=== PATIENT | female | born 1970 | race Caucasian/White ===

== ENCOUNTER 2018-04-12 11:30 | Emergency (ER) | payer OTHER ==
[~2018-04-12] VITALS: Ht 152.4 cm; Wt 69.8 kg
[2018-04-12 11:32] VITALS: TEMP 36.9; Ht 152.4 cm; Wt 69.8 kg
[2018-04-12] MEDS ORDERED: SODIUM CHLORIDE 0.9% 1000ML 1,000 ML IV ONE (12:00)
[2018-04-12] MEDS ORDERED: NALOXONE HCL 0.4 MG/1 ML VIAL/CARP IV PRN (12:00)
[2018-04-12 12:33] LABS: BASO % 0.8 %; BASO ABS # 0.05 K/uL (0-0.2); EOS % 0.8 %; EOS ABS # 0.05 K/uL (0-0.5); HEMATOCRIT 40.9 % (37-47); IG# 0.01 K/uL (0.00-0.02); LYMPH % 34.3 %; LYMPH ABS # 2.24 K/uL (1.2-3.4); MEAN CELL VOLUME 94.7 fL (80-100); MEAN CORPUSCULAR HEMOGLOBIN 32.4 pg (25-34); MEAN CORPUSCULAR HGB CONC 34.2 g/dl (32-36); MEAN PLATELET VOLUME 9.9 fL (7.4-10.4); MONO % 9.9 %; MONO ABS # 0.65 K/uL (0.11-0.59); NEUT ABS # 3.54 K/uL (1.4-6.5); PLATELET COUNT 230 K/uL (130-400); RED CELL DISTRIBUTION WIDTH CV 13.1 % (11.5-14.5); RED CELL DISTRIBUTION WIDTH SD 45.5 fL (36.4-46.3); WHITE BLOOD COUNT 6.54 K/uL (4.8-10.8)
--- NOTE | 2018-04-12 12:35 | EMERGENCY ROOM VISIT NOTE ---
History First contact with patient: 11:35 Chief Complaint: CHEMICAL EXPOSURE Stated Complaint: EXPOSURE Nursing Triage Summary: Patient arrived via ALS from [facility] with exposure from substance that came through the mail. 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 The group home gave me narcan before the ambulance arrived." Denies pain, chest pain, SOB. PT just states "my body feels like it's floating, I can't really feel my body." Patient reports this occured between 9am-10am, symptoms started around 1015. Patient is able to state her full name, stated the year is 1969, knows why she is here. History of Present Illness The patient is a 47 year old female who presents to the Emergency Room with complaints of altered mental status after a possible exposure at work. The patient works at [employer] in the [employer]. This morning around 10:00, she was sorting mail. She began to feel lightheaded and numb. She tried to get up and walk and felt dizzy. The patient collapsed to the floor. She was given 2 doses of Narcan prior to departure from the group home. Currently, the patient is saying that she feels numb all over. She feels like she is floating. She also feels very tired. The history is somewhat limited from the patient as she is altered. Review of Systems 10 system review performed and negative unless noted in HPI or below Past Medical/Surgical History Depression Social History Smoking Status: Never Smoker Occupation Status: employed Current/Historical Medications Scheduled Control Pills ( Control Pills), 1 TAB PO DAILY Bupropion (Wellbutrin-Xl), 300 MG PO QAM Omeprazole (Prilosec), 20 MG PO QAM Pregabalin (Lyrica), 1 CAP PO AMHS Propranolol (Inderal), 60 MG PO QAM Physical Exam Vital Signs Date Time Temp Pulse Resp B/P (MAP) Pulse Ox O2 Delivery O2 Flow Rate FiO2 04/12/18 17:00 74 16 144/81 99 Room Air 04/12/18 15:37 93 04/12/18 15:30 159/95 99 Room Air 04/12/18 15:15 76 16 150/89 99 Room Air 8/28/18 15:00 77 16 158/98 99 Room Air 04/12/18 14:45 86 16 144/113 98 Room Air 04/12/18 14:30 74 16 148/90 96 Room Air 04/12/18 14:15 74 16 138/98 04/12/18 14:00 71 16 146/96 99 Room Air 04/12/18 13:35 72 147/105 97 Room Air 04/12/18 13:15 89 18 167/68 95 Room Air 04/12/18 13:00 72 18 185/105 98 Room Air 04/12/18 12:22 68 16 171/90 99 Room Air 04/12/18 11:36 74 04/12/18 11:32 36.9 65 16 165/91 99 Room Air Physical Exam VITALS: Vitals are noted on the nurse's note and reviewed by myself. Vital signs stable. GENERAL: 47-year-old female, very drowsy and slightly confused, i SKIN: The skin was without rashes, erythema, edema, or bruising. HEAD: Normocephalic atraumatic. EYES: Pupils equal round and reactive to light and accommodation. Conjunctivae without injection, sclerae without icterus. Extraocular movements intact. MOUTH: Mucous membranes slightly dry NECK: Supple without nuchal rigidity. No lymphadenopathy. Cervical spine is nontender. No JVD. HEART: Regular rate and rhythm without murmurs gallops or rubs. LUNGS: Clear to auscultation bilaterally without wheezes, rales or rhonchi. No accessory muscle use. ABDOMEN: Positive bowel sounds x 4.Soft, nontender, without organomegaly. No guarding or rebound tenderness. MUSCULOSKELETAL: No muscle atrophy, erythema, or edema noted. Strength 5/5 throughout. NEURO: Patient was alert and oriented to person only. Following some commands. Medical Decision & Procedures ER Provider Diagnostic Interpretation: CT head w/o contrast Impression: No acute intracranial abnormality. The above report was generated using voice recognition software. It may contain grammatical, syntax or spelling errors. Electronically signed by: Steve Rosenbaum M.D. 04/12/2018 1:56 PM Dictated Date/Time: 04/12/2018 1:52 PM The status of this report is Signed. Draft = Not yet reviewed or approved by Radiologist. Signed = Reviewed and approved by Radiologist. Laboratory Results 04/12/18 12:23 Red Blood Count 4.32, Mean Corpuscular Volume 94.7, Mean Corpuscular Hemoglobin 32.4, Mean Corpuscular Hemoglobin Concent 34.2, Mean Platelet Volume 9.9, Neutrophils (%) (Auto) 54.0, Lymphocytes (%) (Auto) 34.3, Monocytes (%) (Auto) 9.9, Eosinophils (%) (Auto) 0.8, Basophils (%) (Auto) 0.8, Neutrophils # (Auto) 3.54, Lymphocytes # (Auto) 2.24, Monocytes # (Auto) 0.65, Eosinophils # (Auto) 0.05, Basophils # (Auto) 0.05 04/12/18 12:23 Test 04/12/18 12:10 04/12/18 12:23 Urine Color DK YELLOW Urine Appearance CLEAR (CLEAR) Urine pH 6.5 (4.5-7.5) Urine Specific Bronson 1.014 (1.000-1.030) Urine Protein NEG (NEG) Urine Glucose (UA) NEG (NEG) Urine Ketones NEG (NEG) Urine Occult Blood NEG (NEG) Urine Nitrite NEG (NEG) Urine Bilirubin NEG (NEG) Urine Urobilinogen NEG (NEG) Urine Leukocyte Esterase NEG (NEG) Urine Opiates Screen NEG (NEG) Urine Methadone, Qualitative NEG (NEG) Urine Barbiturates NEG (NEG) Urine Phencyclidine (PCP) Level NEG (NEG) Ur Amphetamine/Methamphetamine NEG (NEG) MDMA (Ecstasy) Screen POS (NEG) Urine Benzodiazepines Screen NEG (NEG) Urine Cocaine Metabolite NEG (NEG) Urine Marijuana (THC) NEG (NEG) White Blood Count 6.54 K/uL (4.8-10.8) Red Blood Count 4.32 M/uL (4.2-5.4) Hemoglobin 14.0 g/dL (12.0-16.0) Hematocrit 40.9 % (37-47) Mean Corpuscular Volume 94.7 fL (80-100) Mean Corpuscular Hemoglobin 32.4 pg (25-34) Mean Corpuscular Hemoglobin Concent 34.2 g/dl (32-36) Platelet Count 230 K/uL (130-400) Mean Platelet Volume 9.9 fL (7.4-10.4) Neutrophils (%) (Auto) 54.0 % Lymphocytes (%) (Auto) 34.3 % Monocytes (%) (Auto) 9.9 % Eosinophils (%) (Auto) 0.8 % Basophils (%) (Auto) 0.8 % Neutrophils # (Auto) 3.54 K/uL (1.4-6.5) Lymphocytes # (Auto) 2.24 K/uL (1.2-3.4) Monocytes # (Auto) 0.65 K/uL (0.11-0.59) Eosinophils # (Auto) 0.05 K/uL (0-0.5) Basophils # (Auto) 0.05 K/uL (0-0.2) RDW Standard Deviation 45.5 fL (36.4-46.3) RDW Coefficient of Variation 13.1 % (11.5-14.5) Immature Granulocyte % (Auto) 0.2 % Immature Granulocyte # (Auto) 0.01 K/uL (0.00-0.02) Anion Gap 6.0 mmol/L (3-11) Est Creatinine Clear Calc Drug Dose 73.0 ml/min Estimated GFR () 97.3 Estimated GFR (Non- 84.0 BUN/Creatinine Ratio 16.9 (10-20) Calcium Level 7.4 mg/dl (8.5-10.1) Total Bilirubin 0.3 mg/dl (0.2-1) Aspartate Amino Transf (AST/SGOT) 15 U/L (15-37) Alanine Aminotransferase (ALT/SGPT) 20 U/L (12-78) Alkaline Phosphatase 67 U/L (45-117) Total Protein 6.3 gm/dl (6.4-8.2) Albumin 3.2 gm/dl (3.4-5.0) Globulin 3.1 gm/dl (2.5-4.0) Albumin/Globulin Ratio 1.0 (0.9-2) Medications Administered Medications (Trade) Dose Ordered Sig/Yaneth Route Start Time Stop Time Status Last Admin Dose Admin Sodium Chloride 1,000 ml @ 999 mls/hr Q1H1M ONCE IV 04/12/18 12:00 04/12/18 13:00 DC 04/12/18 12:00 999 MLS/HR Naloxone HCl (Narcan Inj) 2 mg NOW STAT IV 04/12/18 12:53 04/12/18 12:55 DC 04/12/18 12:53 2 MG ECG Per My Interpretation Indication: other Rate (beats per minute): 71 Rhythm: normal sinus ED Course The patient underwent decontamination The patient was put on a monitor An EKG was performed A full H and P were performed She was given 1 L normal saline IV bolus Labs were collected and reviewed The patient was also seen and examined by my supervising physician who is in agreement with my plan A CT of the head was performed and reviewed Upon reevaluation, the patient was feeling much better. She was comfortable being discharged home. I reviewed discharge instructions the patient. They voiced understanding and had no further questions. Medical Decision Differential diagnosis: Chemical exposure including fentanyl, heroin, and anthrax, intracranial abnormality, electrolyte imbalance, among others This patient is a 47-year-old female that presents to the emergency department with altered mental status after possibly being exposed to a chemical at work. On exam, she was confused. She was not following commands. Her vital signs were stable. Her workup is fairly unremarkable. The etiology of her symptoms is unclear. I believe she is stable to be discharged home with close follow- up. The patient was comfortable with this plan. She will return to the ED with any concerning symptoms. This chart was completed in part utilizing [employer] Voice Recognition software. Attempts were made to minimize the grammatical errors, random word insertions, pronoun errors and incomplete sentences. Any formal questions or concerns about the content, text or information contained within the body of this dictation should be directly addressed to the provider for clarification. Medication Reconcilliation Current Medication List: was personally reviewed by me Blood Pressure Screening Patient's blood pressure: Elevated blood pressure Blood pressure disposition: Referred to PCP Impression Primary Impression: Chemical exposure Departure Information Dispostion Home / Self-Care Referrals No Doctor, Assigned (PCP) Patient Instructions [facility] Additional Instructions You have been evaluated in the emergency department for a possible chemical exposure. The source of this exposure at this point is unclear. Please drink plenty of fluids over the next 48 hours. Please follow-up with your primary care physician. Of note, your blood pressure was high today. This should be rechecked. Do not hesitate to return to the emergency department with any new, worsening or concerning symptoms It was a pleasure participating in your care today
[2018-04-12] MEDS ORDERED: PREG1CAP36 PO (12:37)
[2018-04-12] MEDS ORDERED: PROP1TAB PO (12:37)
[2018-04-12] MEDS ORDERED: PRLSR20 PO (12:37)
[2018-04-12] MEDS ORDERED: BUPRTAB51 PO (12:37)
[2018-04-12] MEDS ORDERED: BCPILLS PO (12:37)
[2018-04-12] MEDS ORDERED: NALOXONE HCL 0.4 MG/1 ML VIAL/CARP IV STA (12:53)
[2018-04-12 12:58] LABS: ALBUMIN 3.2 gm/dl (3.4-5.0); CALCIUM 7.4 mg/dl (8.5-10.1); CREATININE 0.83 mg/dl (0.60-1.20); POTASSIUM 4.6 mmol/L (3.5-5.1); TOTAL PROTEIN 6.3 gm/dl (6.4-8.2)
--- NOTE | 2018-04-12 13:58 | DIAGNOSTIC IMAGING REPORT ---
HEAD WITHOUT CONTRAST (CT) CT DOSE: 537.48 mGy.cm HISTORY: Mental status change AMS TECHNIQUE: Multiaxial CT images of the head were performed without the use of intravenous contrast. A dose lowering technique was utilized adhering to the principles of ALARA. Comparison: None. Findings: The paranasal sinuses and mastoid air cells are clear. The calvarium and skull base are intact. The ventricles and sulci are within normal limits. There is no mass, hematoma, midline shift, or acute infarct. Impression: No acute intracranial abnormality. The above report was generated using voice recognition software. It may contain grammatical, syntax or spelling errors. Electronically signed by: Steve Rosenbaum M.D. 04/12/2018 1:56 PM Dictated Date/Time: 04/12/2018 1:52 PM
[2018-04-12 17:00] VITALS: BP 144/81; PULSE 74; O2SAT 99
== END 2018-04-12 17:09 | disposition home or self-care (01) ==
LOC: EDBD 11:30 → C.EDA 11:31
DX: Z77.098 Contact with and (suspected) exposure to other hazardous, chiefly nonmedicinal, chemicals (principal); Y92.149 Unspecified place in prison as the place of occurrence of the external cause; Y99.0 Civilian activity done for income or pay; Z79.3 Long term (current) use of hormonal contraceptives; Z79.899 Other long term (current) drug therapy